=== PATIENT | male | born 1955 | race Caucasian/White ===

== ENCOUNTER 2017-09-29 18:01 | Emergency (ER) | payer OTHER ==
[~2017-09-29] VITALS: Ht 180.3 cm; Wt 83.9 kg
--- NOTE | 2017-09-29 18:16 | ED UPPER/LOWER EXTREMITY COMPL ---
History of Present Illness General Chief Complaint: Hand or Wrist Injury Stated Complaint: LEFT WRIST PAIN Source: patient Exam Limitations: no limitations Vital Signs & Intake/Output Vital Signs & Intake/Output Vital Signs Date Time Temp Pulse Resp B/P B/P Pulse O2 O2 Flow FiO2 Mean Ox Delivery Rate 09/29 1944 97.9 74 16 138/79 99 Room Air 09/29 1805 97.7 75 18 152/81 99 Room Air Allergies Coded Allergies: No Known Allergies (09/29/17) Triage Note: PT TO TRIAGE S/P SLIP AND FALL ON BOTTOM OF STEPS AND HIT L ARM, PT C/O L WRIST PAIN. +ROM, SORENESS PER PT. DENIES NEED FOR PAIN MEDICATION IN TRIAGE, PT APPLIED ICE. Triage Nurses Notes Reviewed? yes Onset: Abrupt Duration: constant Timing: single episode today Severity: moderate Severity Numbers: 5 HPI: Patient is a 62-year-old male who presents emergency room seen at one hour prior to arrival patient was ambulating down CARPETED steps where he fell onto his backside however he bases fall with his bilateral outstretched hands however he complained of acute onset of left wrist pain since. Patient denies any preceding episode of lightheaded sensation or dizziness denies any head strike denies any neck or back pain or elbow pain. 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 No (Jesus Alberto Muñoz) Review of Systems Review of Systems Constitutional: Reports: no symptoms. EENTM: Reports: no symptoms. Respiratory: Reports: no symptoms. Cardiovascular: Reports: no symptoms. Gastrointestinal/Abdominal: Reports: no symptoms. Genitourinary: Reports: no symptoms. Musculoskeletal: Reports: see HPI, joint pain. Skin: Reports: no symptoms. Neurological/Psychological: Reports: no symptoms. Hematologic/Endocrine: Reports: no symptoms. Immunological: Reports: no symptoms. All Other Systems: Reviewed and Negative (Jesus Alberto Muñoz) Physical Exam Physical Exam General Appearance: no apparent distress, alert, comfortable Head: atraumatic Eyes: Bilateral: normal appearance. Ears, Nose, Throat: hearing grossly normal Neck: normal inspection Cardiovascular/Respiratory: no respiratory distress Peripheral Pulses: 2+ radial (L) Neurologic/Tendon: normal sensation, normal motor functions, normal tendon functions, responds to pain, no evidence tendon injury, no pulse deficit Skin: intact, normal color Comments: Right wrist mild generalized point tenderness full active range of motion noted radial pulse +2 Right hand nontender normal inspection (Jesus Alberto Muñoz) Progress Differential Diagnosis: arterial insufficiency, cellulitis, CHF, compartment syndrome, contusion, dislocation, DVT, fracture, gout, septic arthritis, sprain, tendon injury Plan of Care: Orders Procedure Date/time Status Durable Medical Equipment 09/29 1909 Active Patient was neurovascularly intact to left upper extremity. X-rays were resulted no concerns of osseous injury patient will be treated for concerns of a sprain Left wrist splint was applied. PRE/Post neurovascular was intact patient was strongly advised to follow-up with discharge instructions the plan and he will comply Diagnostic Imaging: Viewed by Me: Radiology Read. Radiology Impression: no acute abnormality, no fracture Comments: PATIENT: BARRINGTON HARTMAN JR PRESENT AGE: 62 PATIENT ACCOUNT NO: [id number] : 59 LOCATION: [facility] ORDERING PHYSICIAN: Jesus Alberto ROSS SERVICE DATE: 09/29/17 EXAM TYPE: RAD - XRY-WRIST COMPLETE-LEFT EXAMINATION: XR WRIST, LEFT CLINICAL INFORMATION: Left wrist pain COMPARISON: None TECHNIQUE: PA, lateral, oblique, and scaphoid views of the left wrist. FINDINGS: No fracture. No dislocation. Mild first carpometacarpal degenerative arthrosis. Mild radiocarpal joint space narrowing. Intercarpal joint spaces are maintained. IMPRESSION: No acute osseous abnormality. DICTATED BY: Arash Browning MD DATE/TIME DICTATED:09/29/171843 VENEER SUPERVISOR:VAISHALI DATE/TIME TRANSCRIBED:09/29/17 (Jesus Alberto Muñoz) Departure Departure Disposition: HOME OR SELF CARE Condition: Stable Clinical Impression Primary Impression: Sprain of wrist, left Referrals: [place] BRANCH,Susan (PCP/Family) Sabas Jason MD Additional Instructions: As discussed begin icing the area directly 20 minutes every 2 hours begin over- the-counter ibuprofen for pain and inflammation begin using the wrist splint provided to you in the emergency room UNTIL YOU can move YOUR wrist without pain if no better in one week WITH orthopedic DR. JASON If symptoms worsen return to emergency room Departure Forms: Customer Survey General Discharge Information (Theodore ROSS,Jesus Alberto) PA/SCALE SHOOTER Co-Sign Statement Statement: ED Attending supervision documentation- [] I saw and evaluated the patient. I have also reviewed all the pertinent lab results and diagnostic results. I agree with the findings and the plan of care as documented in the PA's/SCALE SHOOTER's documentation. [x] I have reviewed the ED Record and agree with the PA's/SCALE SHOOTER's documentation. [] Additions or exceptions (if any) to the PAs/SCALE SHOOTER's note and plan are summarized below: [] (Aj BRANCH,Travis Hernandez)
--- NOTE | 2017-09-29 18:48 | RADIOLOGY REPORT ---
EXAMINATION: XR WRIST, LEFT CLINICAL INFORMATION: Left wrist pain COMPARISON: None TECHNIQUE: PA, lateral, oblique, and scaphoid views of the left wrist. FINDINGS: No fracture. No dislocation. Mild first carpometacarpal degenerative arthrosis. Mild radiocarpal joint space narrowing. Intercarpal joint spaces are maintained. IMPRESSION: No acute osseous abnormality.
[2017-09-29 19:45] VITALS: BP 138/79
== END 2017-09-29 20:07 ==
LOC: ERH 18:01
DX: S63.502A Unspecified sprain of left wrist, initial encounter (principal); W19.XXXA Unspecified fall, initial encounter; Y92.9 Unspecified place or not applicable; Y93.9 Activity, unspecified
CPT/HCPCS: 73110-LT